=== PATIENT | male | born 1965 | race Caucasian/White ===

== ENCOUNTER 2016-10-14 01:33 | Emergency (ER) | payer SELFPAY ==
[2016-10-14] MEDS ORDERED: ASPIRIN 325 MG TABLET PO ONE (01:35)
[2016-10-14] MEDS: NITROGLYCERIN 0.4 MG TAB.SUBL SL ONE (01:40)
--- NOTE | 2016-10-14 01:40 | ED Physician Documentation ---
General Adult - HISTORIAN Historian: patient - HPI Stated Complaint: chest pain Chief Complaint: General Adult Additional Information: left sided chest pain began an hour ago with radiation to left jaw. Says its different than CP prior to cardiac stents x2, 9 years ago, but can'tsay how. In custody of [facility], so did not have nitro. No meds taken for CP. Has not taken any of his usual meds for 2-3 months. Was driving from [place] to [facility] because he has a relative there said to be near . Before driving, he says he had 3 shots and a few beers. Picked up for DWI. Timing: still present - ROS CONST: denies: sweating CVS/RESP: chest pain - PAST HX Past History: AMI Other History: other (NIDDM) Surgeries/Procedures: cardiac stent (x2) Allergies/Adverse Reactions: Allergies Allergy/AdvReac Type Severity Reaction Status Date / Time No Known Allergies Allergy Verified 10/14/16 01:36 Home Medications: Ambulatory Orders Medication Instructions Recorded NK [NK] 10/14/16 - SOCIAL HX Smoking History: cigarettes (7-8 cigarettt) Alcohol Use: heavy (18 beers/week) Drug Use: none (denies) - FAMILY HX Family History: No - REVIEWED ASSESSMENTS Nursing Assessment Reviewed: Yes Vitals Reviewed: Yes Progress - Progress Progress: CP relieved after one SL nitro. Sleeping, rouses easily. Troponin I 5.86. Spoke with Janie at [facility] about transfer. [id number], Accepted for admission to [facility] per Dr. Crespo. ED Results Lab/Radiology - Orders Orders: ED Orders Category Date Time Status Continuous EKG monitoring Q1H Care 10/14/16 01:35 Active Continuous Pulse Oximetry Q1H Care 10/14/16 01:36 Active CBC/PLATELET/DIFF Routine Lab 10/14/16 Ordered CMP Routine Lab 10/14/16 Ordered TROPONIN I (cTnI) Stat Lab 10/14/16 Ordered URINALYSIS Routine Lab 10/14/16 Ordered Aspirin Med 10/14/16 01:35 Discontinued 325 mg PO NOW ONE Chem Sticks Med 10/14/16 01:36 Ordered 1 each MC CHEMQ PRN Nitroglycerin [Nitroquick] Med 10/14/16 01:35 Discontinued 0.4 mg SL NOW ONE EKG WITH COMPARISON Stat Ther 10/14/16 Ordered General Adult Physical Exam - PHYSICAL EXAM GENERAL APPEARANCE: mild distress EENT: eye inspection normal, ENT inspection normal, pharynx normal (Mallampati 3 ), CAMRYN NECK: normal inspection, supple RESPIRATORY: no resp distress, chest non-tender, breath sounds normal CVS: reg rate & rhythm, heart sounds normal ABDOMEN: soft, normal bowel sounds, no distension, non-tender RECTAL: deferred BACK: normal inspection SKIN: warm/dry, normal color EXTREMITIES: normal range of motion (gait), no evidence of injury NEURO: CN's nml as tested, motor nml, sensation nml Discharge Clincal Impression: Elevated troponin I level Clincal Impression: (Ruled Out): Chest pain Home Medications: Ambulatory Orders NK [NK] 10/14/16 Condition: Fair Disposition: 02 XFER S[facility]M HOSP Decision to Admit: NO Decision Time: 02:48
[2016-10-14] MEDS: ASPIRIN 81 MG CHEW TAB PO ONE (01:41)
[2016-10-14] MEDS ORDERED: ASPIRIN 81 MG CHEW TAB ONE (01:42)
[2016-10-14 02:31] LABS: BASOPHILS % 0.4 (0.0-1.5); EOSINOPHILS % 0.6 % (0.0-6.8); LYMPHOCYTES # 2.4 # k/uL (0.6-4.0); MEAN CORPUSCULAR HEMOGLOBIN 32.9 pg (28.0-34.0); MONOCYTES # 0.5 # k/uL (0.0-0.9); MONOCYTES % 6.6 % (0.0-11.0)
[2016-10-14 02:40] LABS: eGFR (African) > 60; eGFR (Non-African) > 60
[2016-10-14 05:07] LABS: AMPHETAMINE NEGATIVE ng/mL (<1000); APPEARANCE,URINE CLEAR (CLEAR); BARBITURATES NEGATIVE ng/mL (<300); CANNABINOIDS NON NEGATIVE ng/mL (<50); COCAINE NEGATIVE ng/mL (<150); COLOR,URINE YELLOW (YELLOW); METHAMPHETAMINE NEGATIVE ng/mL (<1000); METHYLENEDIOXYMETHAMPHETAMINE NEGATIVE ng/mL (<500); OCCULT BLOOD,URINE TRACE-LYSED (NEGATIVE)
[2016-10-14 05:48] VITALS: BP 150/101
--- NOTE | 2016-10-14 06:32 | Diagnostic Imaging Report ---
IRWIN ECHOLS~ [facility] [id number] [facility] [address] [place] [id number] ~ ~ ~ ~ Report Submission Date: Oct 14, 2016 3:01:46 AM INSURANCE AND BENEFITS CLERK Patient ~ Study Name: MONIKA FERNANDEZ ~ Date: Oct 14, 2016 2:48:19 AM INSURANCE AND BENEFITS CLERK ~ Modality Type: CR Gender: M ~ Description: CHEST : 63 ~ Institution: [facility] Physician: IRWIN ECHOLS ~ ~ ~ ~ Chest - one-view Clinical history: ~Chest pain for 2 hours. Findings: ~Examination of the chest in single portable AP view 10/14/2016 02:48 hours with no prior film for comparison demonstrates the lungs to be clear. ~ Cardiac silhouette is prominent. ~Monitor leads superimpose the chest. Impression: 1. ~Aortic atherosclerosis and left ventricular prominence. 2. ~No active disease. ~ Electronically signed on Oct 14, 2016 3:01:46 AM INSURANCE AND BENEFITS CLERK by: Edd POE
== END 2016-10-14 03:18 | disposition short-term general hospital (02) ==
LOC: ED 01:33
DX: R07.9 Chest pain, unspecified (principal)
CPT/HCPCS: 71010; 80053; 80320; 80377; 81002; 84484; 85025; 99283; 99284; G0480; G0481; S1016